=== PATIENT | female | born 1965 | race Caucasian/White ===

== ENCOUNTER 2016-07-04 19:01 | Emergency (ER) | payer MEDICARE ==
[~2016-07-04] VITALS: Ht 170.2 cm; Wt 105.8 kg
[2016-07-04 19:30] VITALS: BP 136/104; PULSE 102; RESP 16; TEMP 97.8; O2SAT 95
--- NOTE | 2016-07-05 20:03 | EKG ---
Date Performed: 07/04/2016 Time Performed: 19:13:36 PTAGE: 51 years EKG: Sinus rhythm . Poor R wave progression - probable normal variant Inferior T wave changes are nonspecific [place] e ECG NO PREVIOUS TRACING DOCTOR: Rolando Pham Interpretating Date/Time 07/05/2016 20:02:41
== END 2016-07-04 21:22 | disposition left against medical advice (07) ==
LOC: PHED 19:01
DX: R94.31 Abnormal electrocardiogram [ECG] [EKG] (principal); T50.901A Poisoning by unspecified drugs, medicaments and biological substances, accidental (unintentional), initial encounter; Y92.009 Unspecified place in unspecified non-institutional (private) residence as the place of occurrence of the external cause
CPT/HCPCS: 93005; 99281